=== PATIENT | female | born 1935 | race African-American/Black ===

== ENCOUNTER → 2018-01-28 | Outpatient (CLI) | payer OTHER ==
[~2018-01-28] MED LIST: ASPIR 8181 M1 PO; CELEBREX200 MG PO; DAILY VALUE1 EACH PO; DECADRON2 MG PO; ERGOCALCIF50000 UNIT PO; FISH OIL500 MG PO; Fish Oil PO; Flexeril PO; Flovent 44 mcg IH; GABAPENTIN100 MG PO; GABAPENTIN300 MG PO; KEFLEX500 MG PO; LIDODERM 5% P1 PATCH TD; LISINOPRIL20 MG PO; LOPRESSOR25 MG PO; Lumigan 0.03% Ophth RIGHT EYE; METOPROLOL TART25 MG PO; Neurontin PO; Norvasc PO; Percocet 5/325,Endoc PO; SINGULAIR10 MG PO; Senokot S,Pericolace PO; Singulair PO; Tylenol Regular Stre PO; Zestril,Prinivil PO
== END | disposition home or self-care (01) ==
LOC: RAD 13:57
PROC: 3E0R3KZ Introduction of Other Diagnostic Substance into Spinal Canal, Percutaneous Approach (ICD-10-PCS; principal; 2018-01-28)
DX: M47.892 Other spondylosis, cervical region (principal); M50.222 Other cervical disc displacement at C5-C6 level; M46.92 Unspecified inflammatory spondylopathy, cervical region; R93.7 Abnormal findings on diagnostic imaging of other parts of musculoskeletal system; M47.816 Spondylosis without myelopathy or radiculopathy, lumbar region; M43.10 Spondylolisthesis, site unspecified; M12.88 Other specific arthropathies, not elsewhere classified, other specified site; M54.16 Radiculopathy, lumbar region; M48.061 Spinal stenosis, lumbar region without neurogenic claudication; R29.2 Abnormal reflex
CPT/HCPCS: 62302; 72126